=== PATIENT | female | born 1950 | race Caucasian/White ===

== ENCOUNTER → 2020-12-13 | Day surgery (SDC) | payer OTHER ==
[~2020-12-13] MED LIST: ALLOPURINOL 10100 M3 PO; ASA81BEC PO; FISH OIL 1,0001 EAC9 PO; HUMALOG100 UNIT/1 SUBQ; IRON240 M1 PO; LIPITOR40 MG PO; LISINOPRIL20 MG PO; NORVASC5 MG PO; RENAL VITAMIN0.8 MG PO; TRESIBA100 UNIT/1 SUBQ
--- NOTE | ~2020-12-13 | OP ---
[facility] [address] [place] [address] OPERATIVE REPORT Name: JOSE LOPEZ Room: [facility]#: [id number] Admission: 12/13/20 Attend Phys: Wiliam Lynch Discharge: Date of : 52 Report #: [id number] THIS REPORT FOR: cc: TIERA GARCÍA MD, JESSE MD Patterson,Wiliam Pryor MD ~ DOC #: [id number] Wiliam Lynch MD DATE OF SURGERY: 12/13/2020 PREOPERATIVE DIAGNOSIS: End-stage renal disease with a malfunctioning peritoneal catheter. POSTOPERATIVE DIAGNOSIS: End-stage renal disease with a malfunctioning peritoneal catheter. OPERATION: Revision of tunneled intraperitoneal catheter with removal of obstructive material. SURGEON: Wiliam Lynch MD ANESTHESIA: General. ESTIMATED BLOOD LOSS: Minimal. SPECIMENS: None. DESCRIPTION OF PROCEDURE: After informed consent was obtained, the patient was brought to the operating room and placed supine. SCDs were placed and working, preoperative antibiotics were administered, general anesthesia was induced. The abdomen was prepped and draped in usual sterile fashion with chlorhexidine and Betadine around the catheter. A 2 cm elliptical incision was made around the exit site. The catheter was extruding approximately 1 cm past the skin. The elliptical piece of skin was then removed. I cut the catheter just at the level of the external cuff. I then used a connector piece to connect a new catheter. This was a [place]. This was a curved presternal catheter. It was connected to the connector and tunneled to the right upper quadrant of the abdomen and brought out through a new exit site. The skin was then closed with 4-0 Monocryl. I flushed the catheter easily with 750 mL of heparinized saline. It drained 400 mL of heparinized saline very well. The skin was then closed with 4-0 Monocryl. Sterile occlusive dressing was applied. COMPLICATIONS: [place] [address] OPERATIVE REPORT Name: JOSE LOPEZ Room: [facility]#: [id number] Admission: 12/13/20 Attend Phys: Wiliam Lynch Discharge: Date of : 52 Report #: [id number] DISPOSITION: The patient was taken to recovery in satisfactory condition. MD CIERRA Pritchard/LUDIVINA By: 1216 1235Wiliam Lynch MD /nt
[2020-12-13 07:30] LABS: HEMOGLOBIN 8.8 gm/dL (12.0-15.0); MCH 34.9 pg (26.0-34.0); MCHC 35.1 g/dL (28.0-37.0); MCV 99.4 fL (80.0-100.0); MPV 6.9 fl. (7.2-11.1); RBC 2.52 mil/uL (4.20-5.00); RDW-CV 16.3 % (10.5-14.5); WBC 6.7 thou/uL (4.0-11.0)
[2020-12-13 07:38] LABS: CREATININE 13.9 mg/dL (0.6-1.3); POTASSIUM 5.2 mmol/L (3.5-5.1)
--- NOTE | 2020-12-13 10:31 | EKG ---
[place] [address] ELECTROCARDIOGRAM REPORT Name: JOSE LOPEZ Room: 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
== END | disposition home or self-care (01) ==
LOC: M.SUR 06:58
PROVIDERS: ATTEND Surgery
DX: T85.611A Breakdown (mechanical) of intraperitoneal dialysis catheter, initial encounter (principal); I12.0 Hypertensive chronic kidney disease with stage 5 chronic kidney disease or end stage renal disease; E11.22 Type 2 diabetes mellitus with diabetic chronic kidney disease; N18.6 End stage renal disease; Z98.890 Other specified postprocedural states; Z79.899 Other long term (current) drug therapy; Z88.8 Allergy status to other drugs, medicaments and biological substances; Y83.8 Other surgical procedures as the cause of abnormal reaction of the patient, or of later complication, without mention of misadventure at the time of the procedure

== ENCOUNTER 2021-03-30 07:01 | Inpatient (IN) | payer OTHER ==
[~2021-03-30] VITALS: Ht 165.1 cm; Wt 102.1 kg
--- NOTE | ~2021-03-30 | OP ---
[facility] [address] [place] [address] OPERATIVE REPORT Name: JOSE LOPEZ Room: [address] M.R.#: [id number] Admission: 03/30/21 Attend Phys: Wiliam Lynch Discharge: Date of : 52 Report #: [id number] THIS REPORT FOR: cc: TIERA GARCÍA MD, JESSE MD Patterson,Wiliam Pryor MD ~ DATE OF SURGERY: 03/30/2021 PREOPERATIVE DIAGNOSIS: End-stage renal disease ? with malfunctioning peritoneal catheter. POSTOPERATIVE DIAGNOSIS: End-stage renal disease ? with malfunctioning peritoneal catheter. OPERATION: Removal of peritoneal catheter. SURGEON: Wiliam Lynch MD. ANESTHESIA: General. ESTIMATED BLOOD LOSS: Minimal. SPECIMENS: None. DESCRIPTION OF PROCEDURE: After informed consent was obtained, the patient was brought to the operating room and placed supine. SCDs were placed and working, preoperative antibiotics were administered, general anesthesia was induced. The abdomen was prepped and draped in the usual sterile fashion. I grasped the catheter and retracted anteriorly. There was purulent drainage. Both the external and internal cuffs were not incorporated into the subcutaneous fat. This catheter was very high risk for getting infected and therefore, I elected to just remove the catheter. Two counterincisions were made to go down and free up the cuffs. The catheter then slid out very easily. The skin was then closed with 4-0 Monocryl. Incisions were dressed with Steri-Strips and a gauze dressing. She will be admitted and she will be seen by Nephrology, who will decide if she needs hemodialysis before she can have another peritoneal dialysis catheter placed. COMPLICATIONS: None. DISPOSITION: The patient was taken to recovery in satisfactory condition. By: 1728 1749Jofranchesca Lynch MD /nt
[2021-03-30 07:58] LABS: HEMATOCRIT 35.2 % (37.0-47.0); HEMOGLOBIN 11.6 gm/dL (12.0-15.0); MCH 30.4 pg (26.0-34.0); MCV 92.4 fL (80.0-100.0); MPV 7.2 fl. (7.2-11.1); RBC 3.81 mil/uL (4.20-5.00); RDW-CV 15.8 % (10.5-14.5); WBC 7.2 thou/uL (4.0-11.0)
[2021-03-30 08:13] LABS: CALCIUM 9.1 mg/dL (8.5-10.1); CREATININE 9.2 mg/dL (0.6-1.3); POTASSIUM 4.3 mmol/L (3.5-5.1)
--- NOTE | 2021-03-30 18:47 | NUR ---
PATIENT ADMITTED TO FLOOR FROM POST-OP VIA WHEELCHAIR ACCOMPANIED BY PACU NURSE. IV TO LEFT HAND, SALINE LOCKED, PATENT. THREE INCISIONS TO ABDOMEN, OPEN TO AIR WITH MODERATE SANGUINEOUS DRAINAGE. ORIENTED TO ROOM AND FLOOR. ALERT AND ORIENTED X4. ALL QUESTIONS AND CONCEERNS ADDRESSED.
[2021-03-30 18:57] VITALS: BP 153/77
[2021-03-30 20:34] VITALS: BP 144/68
[2021-03-30 23:54] VITALS: BP 152/71
[2021-03-31 04:01] LABS: HEMATOCRIT 32.6 % (37.0-47.0); HEMOGLOBIN 10.9 gm/dL (12.0-15.0); MCHC 33.5 g/dL (28.0-37.0); MCV 92.5 fL (80.0-100.0); MPV 7.5 fl. (7.2-11.1); RBC 3.53 mil/uL (4.20-5.00); RDW-CV 15.9 % (10.5-14.5); WBC 7.6 thou/uL (4.0-11.0)
[2021-03-31 04:07] VITALS: BP 160/65
[2021-03-31 04:19] LABS: CALCIUM 8.6 mg/dL (8.5-10.1); CREATININE 9.8 mg/dL (0.6-1.3); POTASSIUM 4.7 mmol/L (3.5-5.1)
--- NOTE | 2021-03-31 05:04 | NUR ---
PT A&OX4, VSS ON ROOM AIR, PT UP WITH SBA TO TOILET, PT STATED STINGING PAIN 5/10 1X, REFUSED PAIN MEDICATION. PT SLEEPING WELL. 4X4 GAUZE DRSG TO SURGICAL SITES CHANGED PRN FOR DRAINAGE, CHANGED 2X DURING SHIFT AT THIS TIME. WILL CONTINUE TO MONITOR.
[2021-03-31 09:00] VITALS: BP 150/64
--- NOTE | 2021-03-31 14:31 | NUR ---
1416-PT ARRRIVED BACK FROM IR,SHE HAD RECEIVED HER TEMPORARY HD CATH. SILVERIO IS CDI AND IN PLACE IN R NECK.
[2021-03-31 16:00] VITALS: BP 143/63
[2021-03-31 20:00] VITALS: BP 140/57
[2021-04-01 04:30] LABS: HEMOGLOBIN 10.8 gm/dL (12.0-15.0); MCH 31.6 pg (26.0-34.0); MCHC 33.9 g/dL (28.0-37.0); MCV 93.3 fL (80.0-100.0); MPV 7.3 fl. (7.2-11.1); RBC 3.42 mil/uL (4.20-5.00); RDW-CV 15.9 % (10.5-14.5); WBC 9.6 thou/uL (4.0-11.0)
[2021-04-01 04:47] LABS: ALBUMIN 2.2 g/dL (3.4-5.0); PHOSPHORUS* 8.5 mg/dL (2.5-4.9); POTASSIUM 4.5 mmol/L (3.5-5.1)
[2021-04-01 04:50] LABS: CREATININE 11.1 mg/dL (0.6-1.3)
--- NOTE | 2021-04-01 10:59 | CON ---
[address] [address] CONSULTATION Name: JOSE LOPEZ Room: [address] Stefany Rodriguez#: [id number] Admission: 03/30/21 Attend Phys: Wiliam Lynch Discharge: Date of : 52 Report #: [id number] THIS REPORT FOR: cc: TIERA GARCÍA MD, JESSE MD Khan, Abid R. MD ~ DATE OF CONSULTATION: 03/31/2021 NEPHROLOGY CONSULT CONSULTING PHYSICIAN: Wiliam Lynch MD REASON FOR CONSULT: End-stage kidney disease. HISTORY OF PRESENT ILLNESS: A 70-year-old female with a history of end-stage kidney disease, diabetes, hypertension, who was admitted with a malfunctioning PD catheter. She was taken to the operating room and was found to have a grossly infected catheter with purulent drainage. The patient denies any cloudy peritoneal dialysis fluid, did have some redness around her catheter site and is unsure whether she had any drainage. Nonetheless, the catheter was removed. The exit site now looks okay. She is having some mild serosanguineous oozing from it, but no gross bleeding or signs of purulence at this time. I did speak with Dr. Lynch about the case as well. The patient herself appears to be comfortable, has no shortness of breath, no nausea or vomiting. REVIEW OF SYSTEMS: Constitutional, psych, heme, eyes, ENT, respiratory, cardiac, GI, , endocrine, all negative except as documented above. PAST MEDICAL HISTORY: End-stage kidney disease, insulin-dependent diabetes, hypertension. CURRENT MEDICATIONS: Reviewed. FAMILY HISTORY: Not pertinent to current clinical case. SOCIAL HISTORY: She is . PHYSICAL EXAMINATION: VITAL SIGNS: Blood pressure 160/65, pulse 70, respiratory rate 18, temperature 36.2. GENERAL: No acute distress. EYES: Open. EARS: Externally normal. NECK: Supple. CARDIOVASCULAR: [place] [address] CONSULTATION Name: JOSE LOPEZ Room: [address] M.R.#: [id number] Admission: 03/30/21 Attend Phys: Wiliam Lynch Discharge: Date of : 52 Report #: [id number] LUNGS: No crackles. ABDOMEN: Soft. MUSCULOSKELETAL: Nontender. PSYCHIATRIC: Awake, alert. LABORATORY DATA: White cell count 7.6, hemoglobin 10.9, platelets 194. Sodium 135, potassium 4.7, chloride 96, bicarbonate 26, BUN 82, creatinine 9.8, glucose 101, calcium 8.6. ASSESSMENT: 1. End-stage kidney disease, on peritoneal dialysis, followed by Dr. Meza as an outpatient started peritoneal dialysis in 09/2019. She has had a few PD catheters placed in the past and most recently this one was grossly infected when she was taken to the operating room with purulent drainage. 2. Insulin-dependent diabetes. 3. Hypertension. PLAN: She will need hemodialysis. I did discuss this with her in detail. I did discuss this with the Home Department with Dr. Meza and Dr. Lynch as well. We will set her outpatient dialysis up at [facility] with Dr. Meza, which is geographically most convenient for her. We will ask Interventional Radiology for a tunneled dialysis catheter. Start Keflex x 1 week. Ask case management to assist in dialysis unit placement. Once dialysis chair time is confirmed and tunneled dialysis catheter is placed, the patient can be discharged from a renal standpoint. Thank you for requesting my opinion in the care and management of this patient. <ELECTRONICALLY SIGNED> By: Terell Al MD 04/01/21 1059 1014 [id number] Al MD /nt
[2021-04-01 11:15] VITALS: BP 178/84
[2021-04-01 14:48] VITALS: BP 178/84
[2021-04-01 15:02] VITALS: BP 178/84
[2021-04-01] MEDS ORDERED: KEFLEX250 MG PO ×2 (16:03→17:15)
--- NOTE | 2021-04-01 16:12 | NUR ---
Case and plan of care reviewed with physician each weekday during patient's length of stay. Plan is for .. Discharge today POSSIBLY TOMORROW, TUNNELED CATHETER BEING PLACED. FAXED [facility], CHAIR BEING SAVED FOR DIALYSIS.
--- NOTE | 2021-04-01 17:50 | NUR ---
PATIENT DISCHARGED TO HOME. DISCHARGE PAPERS REIVEWED AND SIGNED. PRESCRIPTION CALLED TO PHARMACY. IV REMOVED. TUNNELED DIALYSIS CATH IN PLACE. DIALYSIS SET UP FOR [facility] LOC[facility]. PATIENT DENIES ANY FURTHER NEEDS. PATIENT TAKEN BY [facility] TO EXIT. LEFT WITH .
[2021-04-01 18:11] VITALS: BP 178/84
[2021-04-02 03:06] LABS: HEPATITIS B SURFACE AG Negative (Negative)
== END 2021-04-01 17:50 | disposition home or self-care (01) | DRG 919 ==
LOC: M.SUR 07:01 → M.3W 17:25 → M.TBA-CV 17:25 → M.3W 17:25 → M.SUR 17:55 → M.3W 04-01 17:50
PROVIDERS: Anesthesiology; Internal Medicine Nephrology; ADMIT Surgery; ATTEND Surgery
PROC: 0WPGX3Z Removal of Infusion Device from Peritoneal Cavity, External Approach (ICD-10-PCS; principal; 2021-03-30)
PROC: B5181ZA Fluoroscopy of Superior Vena Cava using Low Osmolar Contrast, Guidance (ICD-10-PCS; 2021-03-31)
PROC: 02HV33Z Insertion of Infusion Device into Superior Vena Cava, Percutaneous Approach (ICD-10-PCS; 2021-03-31)
PROC: B548ZZA Ultrasonography of Superior Vena Cava, Guidance (ICD-10-PCS; 2021-03-31)
PROC: 02H633Z Insertion of Infusion Device into Right Atrium, Percutaneous Approach (ICD-10-PCS; 2021-04-01)
PROC: 5A1D70Z Performance of Urinary Filtration, Intermittent, Less than 6 Hours Per Day (ICD-10-PCS; 2021-04-01)
PROC: B5181ZA Fluoroscopy of Superior Vena Cava using Low Osmolar Contrast, Guidance (ICD-10-PCS; 2021-04-01)
PROC: 0JH63XZ Insertion of Tunneled Vascular Access Device into Chest Subcutaneous Tissue and Fascia, Percutaneous Approach (ICD-10-PCS; 2021-04-01)
PROC: B548ZZA Ultrasonography of Superior Vena Cava, Guidance (ICD-10-PCS; 2021-04-01)
DX: T85.71XA Infection and inflammatory reaction due to peritoneal dialysis catheter, initial encounter (principal); N18.6 End stage renal disease; I12.0 Hypertensive chronic kidney disease with stage 5 chronic kidney disease or end stage renal disease; Z20.822 Contact with and (suspected) exposure to COVID-19; E11.22 Type 2 diabetes mellitus with diabetic chronic kidney disease; Z79.4 Long term (current) use of insulin; Z79.82 Long term (current) use of aspirin; Z79.899 Other long term (current) drug therapy; Z88.6 Allergy status to analgesic agent; Y83.8 Other surgical procedures as the cause of abnormal reaction of the patient, or of later complication, without mention of misadventure at the time of the procedure; Y92.89 Other specified places as the place of occurrence of the external cause